=== PATIENT | female | born 1975 | race Caucasian/White ===

== ENCOUNTER → 2016-12-24 | Outpatient (CLI) | payer OTHER ==
[~2016-12-24] MED LIST: ALBUTEROL17 GM; AMOXICILLIN; CLARITIN10 MG; FLEXERIL; LIPITOR
--- NOTE | ~2016-12-24 | MR17 ---
[facility] A Service [facility] RADIOLOGY TEXT RESULTS PATIENT: HUMBERTO BACON LOCATION: [facility] : 75 UNIT #: [id number] AGE: [address]: SANNA HURLEY SEX: F ORDER DR: [id number] [place] [id number] O MR#: [id number] Acc #: [id number] NAME: HUMBERTO BACON : 1975 SEX: F STUDY DATE/TIME: 12/24/2016 11:01 UNIT: [facility] ROOM: STUDY DESCRIPTION: MR Brain WWo Contrast Attending Physician: Sanna Hurley M.D. Referring Physician: Sanna Hurley M.D. Ordering Physician: Best Avalos M.D. Primary Care Physician: Best Avalos M.D. MRI CENTER REPORT This report is preliminary unless electronic signature is present. EXAM MRI of the brain with and without contrast dated 12/24/2016. COMPARISON CT head without contrast dated 07/29/2006. HISTORY Headaches, dizziness, vertigo for 6-7 months. TECHNIQUE Multisequence multiplanar imaging of the brain was obtained with and without contrast. 20 mL of MultiHance was administered intravenously. FINDINGS 2 punctate hyperintense T2-signal lesions are noted in the left frontal subcortical white matter, nonspecific and nonenhancing. No acute stroke, enhancing mass, mass effect, midline shift or hydrocephalus is seen. Thick slices through the sella with the pituitary gland, pineal region and upper cervical spine are within normal limits. Postcontrast sequences do not demonstrate enhancing mass. S-shaped nasal septal deviation is seen. Orbits with the ocular structures and paranasal sinuses are unremarkable. Mild right mastoid mucosal thickening is seen. IMPRESSION 1. No demonstrable acute intracranial abnormality, enhancing mass or hydrocephalus. 2. Punctate small hyperintense T2-signal lesions are noted in the left frontal white matter, likely related to mild chronic microvascular ischemic change or migraine, based on age and statistics. [facility] A Service [facility] RADIOLOGY TEXT RESULTS PATIENT: HUMBERTO BACON LOCATION: [facility] : 75 UNIT #: [id number] AGE: [address]: SANNA HURLEY SEX: F ORDER DR: Dictated by... Pardeep Pedraza M.D. THIS IS AN ELECTRONICALLY VERIFIED REPORT Pardeep Pedraza M.D. at 12/25/2016 3:41 PM CPR/price TD: 12/25/2016 11:25 JOB #: [id number] MRI CENTER REPORT Page 1 of 1
== END | disposition home or self-care (01) ==
LOC: SMRI 10:42
DX: R42 Dizziness and giddiness (principal); H93.19 Tinnitus, unspecified ear; R93.0 Abnormal findings on diagnostic imaging of skull and head, not elsewhere classified
CPT/HCPCS: 70553; A9581